=== PATIENT | male | born 1990 | race Caucasian/White ===

== ENCOUNTER 2018-02-25 07:54 | Emergency (ER) | payer OTHER, MEDICAID ==
[2018-02-25] MEDS: SOD CHLORIDE 0.9% 1,000 ML IV (08:49)
[2018-02-25] MEDS: IBUPROFEN 600 MG TAB PO (08:49)
[2018-02-25] MEDS: ACETAMINOPHEN 500 MG TAB PO (08:49)
[2018-02-25 09:29] LABS: MONOTEST Negative (NEG)
== END 2018-02-25 11:02 | disposition home or self-care (01) ==
LOC: FTE 07:54
DX: B34.9 Viral infection, unspecified (principal); R07.9 Chest pain, unspecified
CPT/HCPCS: 36415; 71045; 86308; 87400; 87880; 93005; 99285-25

== ENCOUNTER → 2019-03-27 | Emergency (ER) | payer OTHER | END | disposition home or self-care (01) | LOC: FTE 11:47 | DX: R05 Cough (principal) | CPT/HCPCS: 99282; Z7502 ==